=== PATIENT | male | born 1945 | race Two or more races ===

== ENCOUNTER 2017-06-25 15:42 | Emergency (ER) | payer OTHER ==
[~2017-06-25] VITALS: Ht 154.9 cm; Wt 68.0 kg
[2017-06-25 16:15] VITALS: BP 170/77
== END 2017-06-25 19:32 | disposition left against medical advice (07) ==
LOC: ER 15:42
DX: M54.2 Cervicalgia (principal); Z53.21 Procedure and treatment not carried out due to patient leaving prior to being seen by health care provider

== ENCOUNTER 2018-03-11 00:40 | Emergency (ER) | payer OTHER ==
[~2018-03-11] VITALS: Ht 157.5 cm; Wt 69.0 kg
[2018-03-11 01:16] VITALS: BP 156/90
== END 2018-03-11 03:48 | disposition home or self-care (01) ==
LOC: ER 00:40
DX: H60.90 Unspecified otitis externa, unspecified ear (principal); H61.20 Impacted cerumen, unspecified ear; I10 Essential (primary) hypertension; Z98.890 Other specified postprocedural states
CPT/HCPCS: 99283